=== PATIENT | male | born 1970 | race Caucasian/White ===

== ENCOUNTER 2018-01-08 16:25 | Inpatient (IN) | payer MEDICAID ==
[~2018-01-08] VITALS: Ht 172.7 cm; Wt 83.9 kg
[~2018-01-08 16:25] MED LIST: CITA20TA9 PO; HALO10 PO; VITAD1000 PO
[2018-01-08] MEDS ORDERED: HALOPERIDOL 5 MG TABLET PO PRN (19:15)
[2018-01-08] MEDS ORDERED: INFLUENZA VIRUS VACCINE QVS 2017-18 (3YR+)/PF 60 MCG/0.5 ML SYRINGE IM ONE (19:15)
[2018-01-08] MEDS ORDERED: ZOLPIDEM TARTRATE 10 MG TABLET PO PRN (19:15)
[2018-01-08 19:57] VITALS: BP 135/87
[2018-01-09] MEDS: LORazepam 2 MG TABLET PO PRN ×2 (03:34→11:02)
[2018-01-09 06:21] VITALS: BP 134/87
[2018-01-09 08:38] VITALS: BP 133/77
[2018-01-09] MEDS ORDERED: ALBUTEROL SULFATE HFA 90 MCG/PUFF 8 GM INHALER IH PRN (09:15)
[2018-01-09] MEDS ORDERED: BACITRACIN 28.4 GM OINTMENT TP PRN (09:15)
[2018-01-09] MEDS ORDERED: MAGNESIUM HYDROXIDE SUSPENSION 30 ML UDCUP PO PRN (09:15)
[2018-01-09] MEDS ORDERED: ACETAMINOPHEN 325 MG TABLET PO PRN (09:15)
[2018-01-09] MEDS ORDERED: ONDANSETRON HCL 4 MG TABLET PO PRN (09:15)
[2018-01-09] MEDS ORDERED: LOPERAMIDE HCL 2 MG CAPSULE PO PRN (09:15)
[2018-01-09] MEDS ORDERED: MAG HYDROX/AL HYDROX/SIMETH ES 30 ML SUSPENSION UDCUP PO PRN (09:15)
[2018-01-09] MEDS ORDERED: BENZOCAINE/MENTHOL LOZENGE MM PRN (09:15)
[2018-01-09] MEDS ORDERED: CloNIDine HCL 0.1 MG TABLET PO PRN (09:15)
[2018-01-09] MEDS ORDERED: PETROLATUM,WHITE 71 GM JELLY TP PRN (09:15)
[2018-01-09 09:37] LABS: BASOPHILS % (AUTO) 0.5 % (0.0-2.0); EOSINOPHILS % (AUTO) 4.1 % (1.0-6.0); HEMATOCRIT 40.1 % (41-53); HEMOGLOBIN 13.8 g/dL (13.5-17.5); LYMPHOCYTES # (AUTO) 1.1 K/uL (1.0-4.8); LYMPHOCYTES % (AUTO) 27.3 % (22.0-44.0); MEAN CORPUSCULAR HEMOGLOBIN 30.1 pg (26.0-34.0); MEAN CORPUSCULAR HGB CONC 34.3 G/dL (31.0-37.0); MEAN CORPUSCULAR VOLUME 88 fL (80-100); MONOCYTES # (AUTO) 0.4 K/uL (0.1-1.0); MONOCYTES % (AUTO) 9.2 % (2.0-9.0); NEUTROPHILS # (AUTO) 2.4 K/uL (1.8-7.7); NEUTROPHILS % (AUTO) 58.9 % (40.0-70.0); PLATELET COUNT (AUTO) 208 K/uL (150-450); RED BLOOD CELL COUNT(AUTO) 4.58 MIL/uL (4.50-5.90); RED CELL DISTRIBUTION WIDTH 13.9 % (11.5-14.5)
[2018-01-09 10:45] LABS: ALANINE AMINOTRANSFERASE 71 U/L (12-78); ALBUMIN 2.8 g/dL (3.4-5.0); ALKALINE PHOSPHATASE 67 U/L (46-116); ANION GAP 7 mmol/L (8-16); ASPARTATE AMINOTRANSFERASE 44 U/L (15-37); BILIRUBIN,TOTAL 0.4 mg/dL (0.1-1.0); CALCIUM, TOTAL 8.5 mg/dL (8.8-10.5); CARBON DIOXIDE 28 mmol/L (22-29); CHLORIDE 104 mmol/L (98-107); CHOL/HDL RATIO 3.6 (4.2-7.3); CHOLESTEROL 123 mg/dL (131-200); FREE T4 (FREE THYROXINE) 1.01 ng/dL (0.76-1.46); GLOMERULAR FILTR. RATE CALC > 60 mL/min (>60); GLUCOSE,RANDOM 198 mg/dL (70-110); HDL CHOLESTEROL 34 mg/dL (40-60); LDL CHOL (CALC.) 66 mg/dL (0-130); POTASSIUM 3.9 mmol/L (3.5-5.1); SODIUM SERUM 139 mmol/L (136-145); THYROID STIMULATING HORMONE 1.43 uIU/mL (0.36-3.74); TOTAL PROTEIN, SERUM 6.3 g/dL (6.4-8.2); TRIGLYCERIDES 114 mg/dL (15-150); UREA NITROGEN, BLOOD 11 mg/dL (7-18)
[2018-01-09 15:00] LABS: HEMOGLOBIN A1C 8.1 % (4.5-6.2)
[2018-01-09 16:09] VITALS: BP 137/78
[2018-01-09] MEDS ORDERED: GLUCAGON,HUMAN RECOMBINANT 1 MG VIAL IM PRN (21:00)
[2018-01-09] MEDS ORDERED: HALOPERIDOL 10 MG TABLET PO SCH (21:00)
[2018-01-10 00:30] VITALS: BP 135/72
[2018-01-10] MEDS: LORazepam 2 MG TABLET PO PRN ×2 (00:49→16:41)
[2018-01-10 06:18] LABS: GLUCOMETER DEV NAME(LOC) BV3N5; GLUCOSE,POINT OF CARE 149 MG/DL (70-110)
[2018-01-10] MEDS: INSULIN LISPRO 100 UNITS/ML SQ PRN ×3 (06:53→16:42)
[2018-01-10] MEDS: MetFORMIN HCL 500 MG TABLET PO SCH ×2 (06:54→16:41)
[2018-01-10 08:53] VITALS: BP 132/78
[2018-01-10] MEDS: CHOLECALCIFEROL (VIT D3) 1,000 UNITS TABLET PO SCH (09:08)
[2018-01-10] MEDS: CITALOPRAM HYDROBROMIDE 20 MG TABLET PO SCH (09:08)
[2018-01-10 11:00] VITALS: BP 134/80
[2018-01-10] MEDS: IBUPROFEN 600 MG TABLET PO PRN (11:11)
[2018-01-10 11:48] LABS: GLUCOMETER DEV NAME(LOC) BV3N5; GLUCOSE,POINT OF CARE 155 MG/DL (70-110)
[2018-01-10 12:12] VITALS: BP 135/80
[2018-01-10 16:43] LABS: GLUCOMETER DEV NAME(LOC) BV3N5; GLUCOSE,POINT OF CARE 152 MG/DL (70-110)
[2018-01-10] MEDS ORDERED: QUEtiapine FUMARATE 200 MG TABLET PO SCH (21:00)
[2018-01-10 21:28] LABS: GLUCOMETER DEV NAME(LOC) BV3N5; GLUCOSE,POINT OF CARE 129 MG/DL (70-110)
[2018-01-11] MEDS: MetFORMIN HCL 500 MG TABLET PO SCH (06:31)
[2018-01-11 06:38] LABS: GLUCOMETER DEV NAME(LOC) BV3N5; GLUCOSE,POINT OF CARE 128 MG/DL (70-110)
[2018-01-11 07:06] VITALS: BP 136/79
[2018-01-11] MEDS: CITALOPRAM HYDROBROMIDE 20 MG TABLET PO SCH (09:19)
[2018-01-11] MEDS: CHOLECALCIFEROL (VIT D3) 1,000 UNITS TABLET PO SCH (09:19)
[2018-01-11] MEDS: IBUPROFEN 600 MG TABLET PO PRN (10:36)
[2018-01-11] MEDS ORDERED: QUET200T PO (10:42)
[2018-01-11] MEDS ORDERED: QUET200T29 PO (11:09)
[2018-01-11] MEDS ORDERED: CITA20TA17 PO (11:09)
[2018-01-11 11:37] LABS: GLUCOMETER DEV NAME(LOC) BV3N5; GLUCOSE,POINT OF CARE 171 MG/DL (70-110)
[2018-01-11] MEDS: INSULIN LISPRO 100 UNITS/ML SQ PRN (11:39)
[2018-01-11] MEDS ORDERED: METF500T4 PO (12:40)
== END 2018-01-11 14:05 | disposition home or self-care (01) | DRG 753 ==
LOC: B3A 19:11
DX: F31.4 Bipolar disorder, current episode depressed, severe, without psychotic features (principal); E11.65 Type 2 diabetes mellitus with hyperglycemia; R45.851 Suicidal ideations; B18.2 Chronic viral hepatitis C; E55.9 Vitamin D deficiency, unspecified; F12.90 Cannabis use, unspecified, uncomplicated; F15.10 Other stimulant abuse, uncomplicated; F17.200 Nicotine dependence, unspecified, uncomplicated; F41.9 Anxiety disorder, unspecified; G47.00 Insomnia, unspecified; J44.9 Chronic obstructive pulmonary disease, unspecified; Z59.0 Homelessness; Z71.51 Drug abuse counseling and surveillance of drug abuser; Z71.6 Tobacco abuse counseling; Z79.899 Other long term (current) drug therapy
CPT/HCPCS: 82962; 83036; 84439; 84443; 90471

== ENCOUNTER 2023-05-10 07:23 | Inpatient (IN) | payer MEDICAID ==
[~2023-05-10] VITALS: Ht 172.7 cm; Wt 85.4 kg
[~2023-05-10 07:23] MED LIST changes: +CHOL100018 PO; +CITA20TA17 PO; -CITA20TA9 PO; -HALO10 PO; +METF-1211 PO; +QUET200T30 PO; -VITAD1000 PO
[2023-05-10 10:12] VITALS: RESP 16; TEMP 98
[2023-05-10 10:44] VITALS: TEMP 98.2
[2023-05-10 10:45] VITALS: BP 124/68; PULSE 73; RESP 18; TEMP 98.2; O2SAT 98
[2023-05-10] MEDS ORDERED: PNEUMOCOCCAL VACCINE POLYVALENT 0.5 ML VIAL [PPSV23] IM. ONE (11:15)
[2023-05-10 11:46] LABS: GLUCOMETER DEV NAME(LOC) BV3N.
[2023-05-10] MEDS ORDERED: GLUCAGON,HUMAN RECOMBINANT 1 MG VIAL IM PRN (13:45)
[2023-05-10 15:03] VITALS: TEMP 98.4
[2023-05-10 16:51] LABS: GLUCOMETER DEV NAME(LOC) BV3N.
[2023-05-10] MEDS: MetFORMIN HCL 500 MG TABLET PO SCH (17:22)
[2023-05-10] MEDS: INSULIN LISPRO 100 UNITS/ML SQ PRN (17:25)
[2023-05-10] MEDS ORDERED: BACITRACIN 28 GM OINTMENT TP PRN (19:00)
[2023-05-10] MEDS ORDERED: IBUPROFEN 600 MG TABLET PO PRN (19:00)
[2023-05-10] MEDS ORDERED: DOCUSATE SODIUM 100 MG CAPSULE PO PRN (19:00)
[2023-05-10] MEDS ORDERED: ALBUTEROL SULFATE HFA 90 MCG/PUFF 8 GM INHALER IH PRN (19:00)
[2023-05-10] MEDS ORDERED: MAG HYDROX/AL HYDROX/SIMETH ES 30 ML SUSPENSION UDCUP PO PRN (19:00)
[2023-05-10] MEDS ORDERED: ACETAMINOPHEN 325 MG TABLET PO PRN (19:00)
[2023-05-10] MEDS ORDERED: OMEPRAZOLE 20 MG CAPSULE PO PRN (19:00)
[2023-05-10] MEDS ORDERED: CloNIDine HCL 0.1 MG TABLET PO PRN (19:00)
[2023-05-10] MEDS ORDERED: BENZOCAINE/MENTHOL LOZENGE PO PRN (19:00)
[2023-05-10] MEDS ORDERED: PETROLATUM,WHITE 28 GM JELLY TP PRN (19:00)
[2023-05-10] MEDS ORDERED: ONDANSETRON HCL 4 MG TABLET PO PRN (19:00)
[2023-05-10] MEDS ORDERED: LOPERAMIDE HCL 2 MG CAPSULE PO PRN (19:00)
[2023-05-10] MEDS ORDERED: MAGNESIUM HYDROXIDE SUSPENSION 30 ML UDCUP PO PRN (19:00)
[2023-05-10 20:16] VITALS: BP 126/78; PULSE 84; RESP 18; TEMP 98.1; O2SAT 99
[2023-05-10] MEDS: QUEtiapine FUMARATE 200 MG TABLET PO SCH (20:51)
[2023-05-11] MEDS: HALOPERIDOL 5 MG TABLET PO PRN ×2 (00:12→06:44)
[2023-05-11] MEDS: LORazepam 2 MG TABLET PO PRN ×3 (00:12→16:38)
[2023-05-11] MEDS: ZOLPIDEM TARTRATE 10 MG TABLET PO PRN ×2 (00:12→21:58)
[2023-05-11] MEDS: MetFORMIN HCL 500 MG TABLET PO SCH ×2 (06:44→16:37)
[2023-05-11] MEDS: CITALOPRAM HYDROBROMIDE 20 MG TABLET PO SCH (08:08)
[2023-05-11 08:16] VITALS: BP 126/77; PULSE 79; RESP 18; TEMP 98.9; O2SAT 99
[2023-05-11] MEDS: INSULIN LISPRO 100 UNITS/ML SQ PRN (11:17)
[2023-05-11 11:26] LABS: GLUCOMETER DEV NAME(LOC) BV3N.
[2023-05-11 17:05] LABS: GLUCOMETER DEV NAME(LOC) BV3N.
[2023-05-11] MEDS: QUEtiapine FUMARATE 200 MG TABLET PO SCH (20:11)
[2023-05-11 20:28] VITALS: BP 132/79; PULSE 71; RESP 17; TEMP 98.5; O2SAT 96
[2023-05-12] MEDS: LORazepam 2 MG TABLET PO PRN (06:42)
[2023-05-12] MEDS: MetFORMIN HCL 500 MG TABLET PO SCH ×2 (06:42→16:16)
[2023-05-12] MEDS: INSULIN LISPRO 100 UNITS/ML SQ PRN ×2 (06:49→11:35)
[2023-05-12 06:51] LABS: GLUCOMETER DEV NAME(LOC) BV3N.
[2023-05-12 08:07] VITALS: BP 114/81; PULSE 80; RESP 20; TEMP 96.9; O2SAT 98
[2023-05-12] MEDS: CITALOPRAM HYDROBROMIDE 20 MG TABLET PO SCH (08:08)
[2023-05-12 16:21] LABS: GLUCOMETER DEV NAME(LOC) BV3N.
[2023-05-12 20:05] VITALS: BP 142/84; PULSE 77; RESP 17; TEMP 97.6; O2SAT 98
[2023-05-12] MEDS: QUEtiapine FUMARATE 200 MG TABLET PO SCH (20:31)
[2023-05-12] MEDS: ZOLPIDEM TARTRATE 10 MG TABLET PO PRN (20:31)
[2023-05-13] MEDS: LORazepam 2 MG TABLET PO PRN (06:38)
[2023-05-13] MEDS: MetFORMIN HCL 500 MG TABLET PO SCH ×2 (06:39→16:01)
[2023-05-13] MEDS: HALOPERIDOL 5 MG TABLET PO PRN (06:39)
[2023-05-13 06:51] LABS: GLUCOMETER DEV NAME(LOC) BV3N.
[2023-05-13] MEDS: CITALOPRAM HYDROBROMIDE 20 MG TABLET PO SCH (08:02)
[2023-05-13 08:06] VITALS: BP 135/90; PULSE 85; RESP 18; TEMP 97.7; O2SAT 97
[2023-05-13] MEDS: MUPIROCIN CALCIUM 2% 22 GM OINTMENT NASAL SCH (17:00)
[2023-05-13] MEDS: QUEtiapine FUMARATE 200 MG TABLET PO SCH (20:00)
[2023-05-13 20:06] VITALS: BP 118/68; PULSE 80; RESP 18; TEMP 97.9; O2SAT 97
[2023-05-14] MEDS: LORazepam 2 MG TABLET PO PRN (06:21)
[2023-05-14 06:36] LABS: GLUCOMETER DEV NAME(LOC) BV3N.
[2023-05-14] MEDS: MetFORMIN HCL 500 MG TABLET PO SCH ×2 (06:42→16:01)
[2023-05-14] MEDS: CITALOPRAM HYDROBROMIDE 20 MG TABLET PO SCH (08:06)
[2023-05-14 08:52] VITALS: BP 137/90; PULSE 82; RESP 18; TEMP 97.8; O2SAT 99
[2023-05-14] MEDS: MUPIROCIN CALCIUM 2% 22 GM OINTMENT NASAL SCH ×2 (09:00→17:00)
[2023-05-14] MEDS: INSULIN LISPRO 100 UNITS/ML SQ PRN (16:25)
[2023-05-14 16:37] LABS: GLUCOMETER DEV NAME(LOC) BV3N.
[2023-05-14] MEDS: QUEtiapine FUMARATE 200 MG TABLET PO SCH (20:01)
[2023-05-14 20:04] VITALS: BP 127/72; PULSE 89; RESP 18; TEMP 98.1; O2SAT 96
[2023-05-15] MEDS: LORazepam 2 MG TABLET PO PRN ×2 (06:29→10:45)
[2023-05-15] MEDS: MetFORMIN HCL 500 MG TABLET PO SCH ×2 (06:29→16:32)
[2023-05-15 06:36] LABS: GLUCOMETER DEV NAME(LOC) BV3N.
[2023-05-15] MEDS: INSULIN LISPRO 100 UNITS/ML SQ PRN (06:38)
[2023-05-15] MEDS: CITALOPRAM HYDROBROMIDE 20 MG TABLET PO SCH (08:02)
[2023-05-15 08:17] VITALS: BP 132/68; PULSE 78; RESP 18; TEMP 98; O2SAT 97
[2023-05-15] MEDS: MUPIROCIN CALCIUM 2% 22 GM OINTMENT NASAL SCH ×2 (08:39→17:00)
[2023-05-15 10:24] VITALS: BP 104/78; PULSE 65; RESP 20; TEMP 97.7; O2SAT 98
[2023-05-15] MEDS: HALOPERIDOL 5 MG TABLET PO PRN (10:45)
[2023-05-15] MEDS: QUEtiapine FUMARATE 200 MG TABLET PO SCH (20:11)
[2023-05-15 20:15] VITALS: BP 112/68; PULSE 95; RESP 19; TEMP 97.8; O2SAT 98
[2023-05-15] MEDS ORDERED: MAGNESIUM HYDROXIDE SUSPENSION 30 ML UDCUP PO PRN (21:30)
[2023-05-15] MEDS ORDERED: PROMETHAZINE HCL 25 MG TABLET PO PRN (21:30)
[2023-05-15] MEDS ORDERED: LOPERAMIDE HCL 2 MG CAPSULE PO PRN (21:30)
[2023-05-15] MEDS ORDERED: TUBERCULIN, PURIFIED PROTEIN DERIVATIVE 5 TU/0.1 ML SYRINGE ID ONE (21:30)
[2023-05-15] MEDS ORDERED: MAG HYDROX/AL HYDROX/SIMETH ES 30 ML SUSPENSION UDCUP PO PRN (21:30)
[2023-05-15] MEDS ORDERED: ACETAMINOPHEN 325 MG TABLET PO PRN (21:30)
[2023-05-16] MEDS: MetFORMIN HCL 500 MG TABLET PO SCH ×2 (06:30→16:58)
[2023-05-16 06:31] LABS: GLUCOMETER DEV NAME(LOC) BV3N.
[2023-05-16] MEDS: CITALOPRAM HYDROBROMIDE 20 MG TABLET PO SCH (08:01)
[2023-05-16] MEDS: LORazepam 2 MG TABLET PO PRN (08:01)
[2023-05-16 08:10] LABS: BASOPHILS % (AUTO) 0.8 % (0.0-2.0); EOSINOPHILS % (AUTO) 3.2 % (1.0-6.0); HEMATOCRIT 41.2 % (41-53); HEMOGLOBIN 13.9 g/dL (13.5-17.5); LYMPHOCYTES # (AUTO) 1.1 K/uL (1.0-4.8); MEAN CORPUSCULAR HEMOGLOBIN 29.2 pg (26.0-34.0); MEAN CORPUSCULAR HGB CONC 33.7 G/dL (31.0-37.0); MEAN CORPUSCULAR VOLUME 87 fL (80-100); MONOCYTES # (AUTO) 0.5 K/uL (0.1-1.0); MONOCYTES % (AUTO) 10.1 % (2.0-9.0); NEUTROPHILS # (AUTO) 3.3 K/uL (1.8-7.7); NEUTROPHILS % (AUTO) 64.9 % (40.0-70.0); PLATELET COUNT (AUTO) 323 K/uL (150-450); RED BLOOD CELL COUNT(AUTO) 4.76 MIL/uL (4.50-5.90); RED CELL DISTRIBUTION WIDTH 13.9 % (11.5-14.5)
[2023-05-16 08:24] LABS: HEMOGLOBIN A1C 8.2 % (3.8-5.6)
[2023-05-16 08:33] VITALS: BP 121/75; PULSE 80; RESP 18; TEMP 98.1; O2SAT 98
[2023-05-16 08:41] LABS: ALANINE AMINOTRANSFERASE 13 U/L (12-78); ALBUMIN 3.1 g/dL (3.4-5.0); ALKALINE PHOSPHATASE 70 U/L (46-116); ANION GAP 6 mmol/L (8-16); ASPARTATE AMINOTRANSFERASE 13 U/L (15-37); BILIRUBIN,TOTAL 1.1 mg/dL (0.1-1.0); CALCIUM, TOTAL 8.9 mg/dL (8.8-10.5); CARBON DIOXIDE 29 mmol/L (22-29); CHLORIDE 100 mmol/L (98-107); CHOL/HDL RATIO 3.7 (4.2-7.3); CHOLESTEROL 142 mg/dL (131-200); CREATININE 0.64 mg/dL (0.60-1.30); FREE T4 (FREE THYROXINE) 1.02 ng/dL (0.76-1.46); GLOMERULAR FILTR. RATE CALC > 60 mL/min (>60); GLUCOSE,RANDOM 101 mg/dL (70-110); HDL CHOLESTEROL 38 mg/dL (40-60); LDL CHOL (CALC.) 87 mg/dL (0-130); POTASSIUM 4.3 mmol/L (3.5-5.1); SODIUM SERUM 135 mmol/L (136-145); THYROID STIMULATING HORMONE 3.24 uIU/mL (0.36-3.74); TOTAL PROTEIN, SERUM 7.1 g/dL (6.4-8.2); TRIGLYCERIDES 83 mg/dL (15-150)
[2023-05-16] MEDS: MUPIROCIN CALCIUM 2% 22 GM OINTMENT NASAL SCH ×2 (09:00→17:00)
[2023-05-16] MEDS: INSULIN LISPRO 100 UNITS/ML SQ PRN (11:33)
[2023-05-16 11:41] LABS: GLUCOMETER DEV NAME(LOC) BV3N.
[2023-05-16] MEDS ORDERED: QUET200T PO (16:58)
[2023-05-16] MEDS ORDERED: QUEtiapine FUMARATE 200 MG TABLET PO SCH (21:00)
== END 2023-05-16 18:15 | disposition home or self-care (01) | DRG 750 ==
LOC: B3A 10:07
PROVIDERS: ADMIT Psychiatry & Neurology Psychiatry; ATTEND Psychiatry & Neurology Psychiatry
DX: F25.1 Schizoaffective disorder, depressive type (principal); B18.2 Chronic viral hepatitis C; E11.65 Type 2 diabetes mellitus with hyperglycemia; F17.200 Nicotine dependence, unspecified, uncomplicated; J44.9 Chronic obstructive pulmonary disease, unspecified; F41.9 Anxiety disorder, unspecified; G47.00 Insomnia, unspecified; F15.10 Other stimulant abuse, uncomplicated; E55.9 Vitamin D deficiency, unspecified; F31.9 Bipolar disorder, unspecified; F10.10 Alcohol abuse, uncomplicated
CPT/HCPCS: 80053; 80061; 82962; 83036; 84439; 84443; 85025; 86592; 87081; J3535

== ENCOUNTER 2025-09-18 20:17 | Emergency (ER) | payer MEDICAID, OTHER ==
[~2025-09-18] VITALS: Ht 180.3 cm; Wt 86.0 kg
[~2025-09-18 20:17] MED LIST changes: -CHOL100018 PO; +QUET200T PO; -QUET200T30 PO
[2025-09-18 20:22] VITALS: TEMP 98.1
[2025-09-18 20:46] LABS: GLUCOMETER DEV NAME(LOC) ERT.7; GLUCOSE,POINT OF CARE 292 MG/DL (70-110)
[2025-09-18 20:55] LABS: PLATELET COUNT (AUTO) 263 K/uL (150-450); RED BLOOD CELL COUNT(AUTO) 5.85 MIL/uL (4.50-5.90); RED CELL DISTRIBUTION WIDTH 14.0 % (11.5-14.5); WHITE BLOOD COUNT (AUTO) 9.8 K/uL (4.5-11.0)
[2025-09-18 21:04] LABS: CALCIUM, TOTAL 9.7 mg/dL (8.8-10.5); CREATININE 0.94 mg/dL (0.60-1.30); GLOMERULAR FILTR. RATE CALC > 60 mL/min (>60); GLUCOSE,RANDOM 255 mg/dL (70-110); SODIUM SERUM 134 mmol/L (136-145); UREA NITROGEN, BLOOD 12 mg/dL (7-18)
[2025-09-18 22:19] VITALS: BP 153/105; PULSE 106; RESP 18; O2SAT 97
== END 2025-09-18 22:42 | disposition home or self-care (01) ==
LOC: EMS 20:17
DX: E11.65 Type 2 diabetes mellitus with hyperglycemia (principal); I10 Essential (primary) hypertension; F12.90 Cannabis use, unspecified, uncomplicated; F20.9 Schizophrenia, unspecified; F17.210 Nicotine dependence, cigarettes, uncomplicated; Z90.49 Acquired absence of other specified parts of digestive tract; Z79.899 Other long term (current) drug therapy
CPT/HCPCS: 80048; 82962; 85025; 93005; 99284